=== PATIENT | female | born 1955 | race Caucasian/White ===

== ENCOUNTER → 2017-03-13 | Outpatient (CLI) | payer OTHER ==
[~2017-03-13] VITALS: Ht 172.7 cm; Wt 81.6 kg
[~2017-03-13] MED LIST: EXFORGE HCT 101 EAC2 PO; LIBRAX, CLI1 CAPSULE PO; LIPITOR40 MG PO; NEXIUM 24HR20 MG PO
[2017-03-13 08:44] LABS: ANION GAP 8 MEQ/L (2-14); CHLORIDE 109 MEQ/L (99-109); POTASSIUM 3.8 MEQ/L (3.7-5.4); SAMPLE HEMOLYSIS CHECK 0; SAMPLE ICTERIC CHECK 0; SAMPLE LIPEMIA CHECK 0; SODIUM 143 MEQ/L (136-147)
[2017-03-13 08:49] LABS: GFR ESTIMATE (CALCULATED) > 59 mL/min/; GLUCOSE 98 mg/dL (70-99); UREA NITROGEN (BUN) 21 mg/dL (9-23)
== END | disposition home or self-care (01) ==
LOC: AMB 07:27
PROVIDERS: Anesthesiology
DX: K31.89 Other diseases of stomach and duodenum (principal); R59.0 Localized enlarged lymph nodes; K83.8 Other specified diseases of biliary tract; R14.0 Abdominal distension (gaseous); R10.13 Epigastric pain; K21.9 Gastro-esophageal reflux disease without esophagitis; R73.9 Hyperglycemia, unspecified; E78.5 Hyperlipidemia, unspecified; I10 Essential (primary) hypertension; K58.9 Irritable bowel syndrome, unspecified; I34.0 Nonrheumatic mitral (valve) insufficiency; E66.9 Obesity, unspecified; Z88.8 Allergy status to other drugs, medicaments and biological substances; K29.90 Gastroduodenitis, unspecified, without bleeding; N28.1 Cyst of kidney, acquired
CPT/HCPCS: 80048; 88305; 88342 TC; 93005; J1100; J2250; J2405; J3010